=== PATIENT | female | born 1995 | race African-American/Black ===

== ENCOUNTER 2020-02-01 15:04 | Emergency (ER) | payer SELFPAY ==
[2020-02-01] MEDS ORDERED: METOCLOPRAMIDE HCL INJ/PF 10 MG/2 ML SDV IV ONE (15:26)
[2020-02-01] MEDS ORDERED: DIPHENHYDRAMINE HCL 50 MG/ML VIAL IV ONE (15:26)
--- NOTE | 2020-02-01 15:28 | ER Document Report ---
ED Medical Screen (RME) - General Chief Complaint: Headache Stated Complaint: NAUSEA,HEADACHE,VOMITING Time Seen by Provider: 02/01/20 15:20 Primary Care Provider: HARINI BOYLE FNP-C [Primary Care Provider] - Follow up as needed TRAVEL OUTSIDE OF THE [place] IN LAST 30 DAYS: No - HPI Notes: 02/01/20 15:27 24-year-old female to the emergency department with complaints of headache for the past several days with body aches, nausea vomiting and chills. She states it started like a tension headache but then he gets pounding and sharp. She states that she does have a little bit of sensitivity to light. She denies any fevers but admits that she has been feeling chilled. She states that she has had nausea and vomiting and body aches with it. She denies any sore throat, l oss of smell or taste. She denies any cough. She states that she has not been around anybody has tested positive for Covid. She has not recently been tested herself. The patient was evaluated during the global COVID 19 pandemic, and that diagnosis was suspected/considered upon their initial presentation. Their evaluation, treatment, and testing was consistent with current guidelines for patients who present with complaints or symptoms that may be related to COVID- 19. I performed a brief medical screening exam on the patient determined that the patient needs further evaluation and management by main side provider. I have placed initial orders to help expedite care. - Related Data Allergies/Adverse Reactions: No Known Allergies Allergy (Unverified 02/01/20 15:20) Past Medical History - Social History Chew tobacco use (# tins/day): No Drug Abuse: None Physical Exam - Vital signs Vitals: Temp Pulse Resp BP Pulse Ox 99.1 F 93 16 124/65 99 02/01/20 15:11 02/01/20 15:11 02/01/20 15:11 02/01/20 15:11 02/01/20 15:11 Course - Vital Signs Vital signs: Temp Pulse Resp BP Pulse Ox 99.1 F 93 16 124/65 99 02/01/20 15:11 02/01/20 15:11 02/01/20 15:11 02/01/20 15:11 02/01/20 15:11 Doctor's Discharge - Discharge Referrals: TAMAR,HARINI A, DIRECTOR OF NURSES REGISTRY-C [Primary Care Provider] - Follow up as needed
[2020-02-01 17:01] LABS: ABSOLUTE EOSINOPHILS # (AUTO) 0.2 10^3/uL (0.0-0.6); ABSOLUTE MONOCYTES (AUTO) 0.4 10^3/uL (0.1-1.4); ABSOLUTE NEUT (AUTO) 2.4 10^3/uL (1.7-8.2); BASOPHILS % (AUTO) 0.3 % (0-2); EOSINOPHILS % (AUTO) 3.4 % (0-6); HEMATOCRIT 37.8 % (36.0-47.0); HEMOGLOBIN 12.8 g/dL (12.0-15.5); LYMPHOCYTES % (AUTO) 40.3 % (13-45); MEAN CORPUSCULAR HEMOGLOBIN 31.6 pg (27.0-33.4); MEAN CORPUSCULAR HGB CONC 33.8 g/dL (32.0-36.0); MEAN CORPUSCULAR VOLUME 94 fl (80-97); MONOCYTES % (AUTO) 8.3 % (3-13); PLATELET COUNT 214 10^3/uL (150-450); RED BLOOD COUNT 4.05 10^6/uL (3.72-5.28); RED CELL DISTRIBUTION WIDTH 13.1 % (11.5-14.0); SEGMENTED NEUTROPHILS % (AUTO) 47.7 % (42-78); TOTAL CELLS COUNTED % (AUTO) 100 %
--- NOTE | 2020-02-01 17:02 | ER Document Report ---
ED General - General Chief Complaint: Headache Stated Complaint: NAUSEA,HEADACHE,VOMITING Time Seen by Provider: 02/01/20 15:20 Primary Care Provider: HARINI BOYLE FNP-C [Primary Care Provider] - Follow up as needed Mode of Arrival: Ambulatory Information source: Patient Notes: 24-year-old healthy -[place] female coming in today chief complaint of malaise, headaches, occasional episodic dizziness. She does not have any chronic medical problems. Not on any OTC supplements. No nausea vomiting or diarrhea TRAVEL OUTSIDE OF THE [place] IN LAST 30 DAYS: No - Related Data Allergies/Adverse Reactions: No Known Allergies Allergy (Unverified 02/01/20 15:20) Past Medical History - Social History Smoking Status: Never Smoker Chew tobacco use (# tins/day): No Drug Abuse: None Family History: None Review of Systems - Review of Systems Notes: Constitutional: No fevers. No chills. Positive malaise EENT: No eye redness. No eye pain. No ear pain. No sore throat. Cardiovascular: No chest pain. No palpitations. Respiratory: No cough. No shortness of breath. No respiratory distress. Gastrointestinal: No abdominal pain. No nausea, vomiting, or diarrhea. Genitourinary: Atraumatic. No lesions. No pain. No discharge. Musculoskeletal: Atraumatic. No swelling. No deformities. Skin: No rash or lesions. Lymphatic: No swollen lymph nodes. Neurologic: +headache. No syncope. + Dizziness Psychiatric: No suicidal or homicidal ideation. Physical Exam - Vital signs Vitals: Temp Pulse Resp BP Pulse Ox 99.1 F 93 16 124/65 99 02/01/20 15:11 02/01/20 15:11 02/01/20 15:11 02/01/20 15:11 02/01/20 15:11 - Notes Notes: General: Well-developed, well-nourished. In no acute distress. Non-toxic appearing. Cardiac: Well-perfused. Regular rate and rhythm. No murmurs, rubs, or gallops. Pulmonary: No respiratory distress. No cyanosis. Bilateral lung adams are clear to auscultation. Abdominal: Non-distended. Non-rigid. Bowels sounds are present in all four quadrants. No guarding or rebound. HEENT: Head is atraumatic. Conjunctivae not reddened. No tearing. PERRL. EOMI. Orbits atraumatic. No periorbital swelling or erythema. Oropharynx is without erythema, swelling, or exudates. Neck: Supple. No adenopathy. No meningismus. Dermatologic: Warm with good turgor. No rash. Atraumatic. Chest: Atraumatic. No chest wall tenderness to palpation. Musculoskeletal: Moves all extremities well. No range of motion deficits. no muscular or joint tenderness. No paraspinal muscle tenderness. no midline spinal tenderness or step-off. Genitourinary: Examination deferred Neurologic: No gross neurologic deficits. Psychiatric: Normal mood. Course - Re-evaluation Re-evalutation: 02/01/20 17:01 Patient has completely normal exam. Routine lab work has been ordered. Rule out anemia, rule out UTI, rule out . Most likely a viral syndrome. Covid has been collected. 02/01/20 17:54 Lab work is normal. Covid screen is pending. Will prescribe Reglan if the patient desires to get it for her nausea and for headaches - Vital Signs Vital signs: Temp Pulse Resp BP Pulse Ox 99.1 F 93 16 124/65 99 02/01/20 15:11 02/01/20 15:11 02/01/20 15:11 02/01/20 15:11 02/01/20 15:11 - Laboratory Result Diagrams: 02/01/20 16:20 02/01/20 16:20 Laboratory results interpreted by me: 02/01/20 16:20 Ur Leukocyte Esterase TRACE H Urine Ascorbic Acid 20 H Discharge - Discharge Clinical Impression: Viral syndrome, Person under investigation for COVID-19 Condition: Good Disposition: HOME, SELF-CARE Instructions: COVID-19 Guidance for Persons Under Investigation, Antinausea Medication ([facility]), Reglan ([facility]), Viral Syndrome ([facility]) Prescriptions: Metoclopramide HCl [Reglan] 5 mg PO Q6HP PRN #10 tablet PRN Reason: Referrals: HARINI BOYLE FNP-C [Primary Care Provider] - Follow up as needed
[2020-02-01 17:03] LABS: APPEARANCE,URINE SLIGHTLY-CLOUDY; BILIRUBIN,URINE NEGATIVE (NEGATIVE); COLOR,URINE YELLOW; GLUCOSE, URINE NEGATIVE (NEGATIVE); KETONES,URINE NEGATIVE (NEGATIVE); LEUKOCYTE ESTERASE,URINE TRACE (NEGATIVE); NITRITE,URINE NEGATIVE (NEGATIVE); PROTEIN,URINE NEGATIVE (NEGATIVE); URINE SPECIFIC GRAVITY 1.018; UROBILINOGEN,URINE NEGATIVE mg/dL (<2.0)
[2020-02-01 17:30] LABS: ALBUMIN 4.3 g/dL (3.5-5.0); ALKALINE PHOSPHATASE 56 U/L (38-126); ANION GAP 8 (5-19); ASPARTATE AMINO TRANSFERASE 28 U/L (14-36); BILIRUBIN,DIRECT 0.3 mg/dL (0.0-0.4); BILIRUBIN,TOTAL 0.3 mg/dL (0.2-1.3); BLOOD UREA NITROGEN 11 mg/dL (7-20); CALCIUM 9.6 mg/dL (8.4-10.2); CARBON DIOXIDE 27 mmol/L (22-30); CHLORIDE 104 mmol/L (98-107); GLUCOSE 92 mg/dL (75-110); POTASSIUM 4.4 mmol/L (3.6-5.0); TOTAL PROTEIN 7.6 g/dL (6.3-8.2)
[2020-02-01 18:11] VITALS: BP 104/63
== END 2020-02-01 18:18 | disposition home or self-care (01) ==
LOC: ER 15:04
DX: B34.9 Viral infection, unspecified (principal); Z20.828 Contact with and (suspected) exposure to other viral communicable diseases; R51.9 Headache, unspecified; R11.2 Nausea with vomiting, unspecified; R53.81 Other malaise; R42 Dizziness and giddiness
CPT/HCPCS: 99284; 96374; 96375; 36415; 84703; 85025; 87635; 80053; 81001; J1200; J2765; C9803